=== PATIENT | male | born 1970 | race Caucasian/White ===

== ENCOUNTER → 2016-07-16 | Outpatient (CLI) | payer OTHER ==
[~2016-07-16] MED LIST: CYMB1CAP PO; EMLA2.5C TOP; HYDR-2809 PO; HYDR5TAB23 PO; IBUP80TA PO; LYRI200C PO; LYRI75CA PO; PERC10TA17 PO; SENO8.6T2 PO; ULTR50TA PO
--- NOTE | 2016-07-17 00:12 | ECWPNPC ---
PATIENT NAME: HORACIO CARTWRIGHT : 1970 GENDER: MALE VISIT DATE: 07/16/2016 DISCHARGE DATE: 07/16/16 1200 VISIT LOCKED DATE TIME: PHYSICIAN: JAGUAR SALAZAR RESOURCE: JAGUAR SALAZAR REASON FOR APPOINTMENT 1. RIGHT ARM PAIN HISTORY OF PRESENT ILLNESS HISTORY OF PRESENT ILLNESS: PAIN THE PATIENT DESCRIBES THE PAIN... 45 YEAR OLD MALE PATIENT WITH HISTORY OF CHRONIC RIGHT ARM PAIN. PATIENT DESCRIBES THE PAIN ACHING, SHARP, STABBING, TENDER, SHOOTING, AND HAVING IT ALL THE TIME WITH A PAIN SCORE OF 7/10. PATIENT WAS HURT IN A WORK RELATED INJURY IN JULY 2012 WHEN HIS ARM WAS PULLED INTO A LUMBER PLAINER. PATIENT WENT TO THE ER THE SAME DAY WHERE IT WAS PLANNED TO HAVE HIS RIGHT ARM AMPUTATED, TWO MONTHS AFTER THEY WERE ABLE TO DRAIN THE FLUID AND REATTACH THE BICEPS MUSCLE. SINCE THE ACCIDENT THE PATIENT IS UNABLE TO MOVE HIS ARM AND REPORTS BEING IN PAIN AT ALL TIMES. THE PATIENT IS CURRENTLY USING THE EMLA CREAM ALL OVER THE ARM ESPECIALLY ON THE WRIST AND ELBOW DUE TO THEM HIGH SENSITIVITY AND PAIN HE FEELS. MR. CARTWRIGHT IS ALSO USING LYRICA 3 TIMES A DAY FOR THE NEUROPATHIC PAIN, TRAMADOL UP TO 4 TIES A DAY, PERCOCET UP TO 4 TIMES A DAY, AND TIZANIDINE WHICH HE STATES HELPS TO KEEP HIM FUNCTIONAL. WITHOUT THE MEDICATIONS THE PATIENT STATES THAT HE WOULD NOT BE ABLE TO FUNCTION. MR. CARTWRIGHT REPORTS HE WOULD LIKE TO MOVE FORWARD WITH THE DCS TRIAL HOWEVER WE ARE STILL AWAITING APPROVAL FOR MRI'S AND A PSYCHOLOGICAL EVALUATION. AT THIS TIME MEDICATION MANAGEMENT IS THE ONLY THING THAT HAS GIVEN THE PATIENT ANY TYPE OF RELIEF. MR. CARTWRIGHT STATES THAT ANY MOVEMENT OF THE ARM INCREASES THE PAIN. PATIENT DENIES UNEXPLAINABLE WEIGHT LOSS, FEVER, CHILLS, NEW CHANGES ON HIS URINARY OR BOWEL CONTROL. FALL RISK SCREENING: SCREENING :NO FALLS IN THE PAST YEAR CURRENT MEDICATIONS TAKING EMLA 2.5-2.5 % CREAM PEA SIZED AMT EXTERNALLY APPLY Q 6 HRS TO RIGHT ARM FOR PAIN WORKERS COMP TAKING PERCOCET 10-325 MG TABLET 1 TABLET ORALLY EVERY 6 HRS PRN PAIN MDD=3 WORKERS COMP RIGHT ARM TAKING MULTI FOR HIM TABLET ORALLY DAILY TAKING DICLOFENAC 75 TABLET 1 CAPSULE ORALLY TWICE TIMES A DAY WITH FOOD TAKING LYRICA 200 MG CAPSULE 1 CAPSULE ORALLY Q 8 HRS MDD=3 WORKERS COMP R ARM TAKING TRAMADOL HCL 50 MG TABLET 1 TABLET NEEDED ORALLY EVERY 4 - 6 HRS PRN PAIN MDD = 6 WORKERS COM RIGHT ARM TAKING TIZANIDINE HCL 4 MG TABLET 1 TABLET ORALLY EVERY 8 HRS DISCONTINUED DICLOFENAC POTASSIUM 50 MG TABLET 1 TABLET ORALLY TWICE A DAY MEDICATION LIST REVIEWED AND RECONCILED WITH THE PATIENT PAST MEDICAL HISTORY NONE ALLERGIES HAY: STUFFY NOSE, ITCHY EYES SURGICAL HISTORY DISTAL BICEP REPAIR 2013 TRIGGER RELEASE RIGHT HAND 2013 NOSE REAPAIR FAMILY HISTORY NO FAMILY HISTORY DOCUMENTED. SOCIAL HISTORY GENERAL: TOBACCO USE ARE YOU A:NONSMOKER LEARNING BARRIERS / SPECIAL NEEDS ORIENTED TO PLAN OF CARE: PATIENT, PAIN MANAGEMENT PATIENT, ORIENTED TO PLAN OF CARE: PATIENT, PAIN MANAGEMENT PATIENT. NEW PATIENT PAIN DIARY TODAY'S VISITNOTES FROM 0-10, WHAT LEVEL IS YOUR PAIN TODAY?0 PAIN CLINIC PFS, CLERGY, PUBLIC HEALTH REFERRALS PFS REFERRAL NEEDED?NO CLERGY REFERRAL NEEDED?NO PUBLIC HEALTH REFERRAL NEEDED?NO WAS THE PROVIDER NOTIFIED OF ANY PERTINENT INFO?NO PFS REFERRAL NEEDED?NO CLERGY REFERRAL NEEDED?NO PUBLIC HEALTH REFERRAL NEEDED?NO WAS THE PROVIDER NOTIFIED OF ANY PERTINENT INFO?NO HOSPITALIZATION/MAJOR DIAGNOSTIC PROCEDURE NO HOSPITALIZATION HISTORY. REVIEW OF SYSTEMS CONSTITUTIONAL: ANY CHANGE IN YOUR MEDICAL CONDITION? NO . CHILLS NO . FEVER NO . INFECTION: DO YOU HAVE NEW INFECTIONS? NO . DO YOU HAVE HISTORY OF MRSA? NO . MUSCULOSKELETAL: ANY NEW PATTERNS OF PAIN OR NUMBNESS? NO . GASTROENTEROLOGY: ANY NEW CHANGE IN BOWEL CONTROL? NO . GENITOURINARY: ANY NEW CHANGE IN BLADDER CONTROL? NO . IS THERE A CHANCE YOU COULD BE ? NO . HEMATOLOGY/LYMPH: DO YOU TAKE ANY BLOOD THINNERS? (FOR EXAMPLE- COUMADIN, PLAVIX, AGGRENOX, PLATEL, PRADAXA, OR XARELTO) NO . WHEN WAS YOUR LAST DOSE? DATE: TIME: . NEUROLOGY: HAVE YOU FALLEN IN THE PAST 6 MONTHS? NO . ANY NEW EXTREMITY NUMBNESS OR WEAKNESS? NO . CARDIOLOGY: DO YOU HAVE A PACEMAKER OR DEFIBRILLATOR? NO . RESPIRATORY: HAVE YOU BEEN SICK IN THE PAST WEEK? NO . FEVER NO . FLU LIKE SYMPTOMS? NO . COUGH NO . INTEGUMENTARY: DO YOU HAVE ANY RASHES OR OPEN SORES? NO . ALLERGIC/IMMUNO: ARE YOU ALLERGIC TO SHELLFISH OR IV DYE? NO . ANY NEW ALLERGIES? NO . PSYCHIATRIC: DO YOU HAVE THOUGHTS OF HURTING YOURSELF OR SOMEONE ELSE? NO . ARE YOU ABUSED, NEGLECTED, OR IN AN UNSAFE ENVIRONMENT? NO . ENDOCRINOLOGY: ARE YOU DIABETIC? NO . OTHER: DO YOU NEED ANY PRESCRIPTIONS? YES . IF YES, PLEASE LIST: PERCOCET 10MG . ANY NEW PROBLEMS WITH YOUR MEDICATIONS? NO . WHEN DID YOU LAST EAT? ____ . WHEN DID YOU LAST DRINK? ____ . WHAT DID YOU LAST DRINK? ____ . NAME OF PERSON DRIVING YOU HOME? ____ . DO YOU HAVE ANY OTHER QUESTIONS OR CONCERNS YES, NEEDS MEDICAL RECORDS FOR COMP . REVIEWED BY: PROVIDER: JAGUAR SALAZAR MD . VITAL SIGNS WT 220 LBS, HT 73 IN, BMI 29.02 INDEX, BP 138/81 MM HG, HR 106 /MIN, RR 18 /MIN, TEMP 97.6 F, OXYGEN SAT % 98%, NA INITIALS SC 10:50, REVIEWED BY: CM. EXAMINATION : PATIENT IS ALERT O X 3 AND COOPERATIVE. ALLODYNIA IN THE RIGHT ELBOW AREA. SCAR ANTERIOR ASPECT OF THE ELBOW JOINT ROUGHLY 7 INCHES LONG. ALLODYNIA IN THE RIGHT ELBOW. RIGHT HAND GANG INVESTIGATOR IS VERY LIMITED AND MUCH WEAKER THEN THE LEFT. FLEXION OF THE RIGHT ARM IS LIMITED TO 20/30 DEGREES, ABDUCTION IS LIMITED, EXTENSION IS AT 10 DEGREES. RIGHT HAND SWOLLEN COMPARED TO THE LEFT HAND. RIGHT HAND AND FOREARM HAS MILD DISCOLORATION. ASSESSMENTS PAIN IN RIGHT UPPER ARM - M79.621 NEUROPATHY. TREATMENT OTHERS REFILL PERCOCET TABLET, 10-325 MG, 1 TABLET, ORALLY, EVERY 6 HRS PRN PAIN MDD=4 WORKERS COMP RIGHT ARM, 30 DAYS, 110, REFILLS 0 REFILL LYRICA CAPSULE, 200 MG, 1 CAPSULE, ORALLY, Q 8 HRS MDD=3 WORKERS COMP R ARM, 30 DAY(S), 90, REFILLS 2 REFILL TRAMADOL HCL TABLET, 50 MG, 1 TABLET NEEDED, ORALLY, EVERY 4 - 6 HRS PRN PAIN MDD = 6 WORKERS COM RIGHT ARM, 30 DAY(S), 150, REFILLS 1 REFILL TIZANIDINE HCL TABLET, 4 MG, 1 TABLET, ORALLY FOS SPAMSM AND PAIN, EVERY 8 HRS MDD3, 30 DAY(S), 90, REFILLS 2 REFILL EMLA CREAM, 2.5-2.5 %, PEA SIZED AMT, EXTERNALLY, APPLY Q 6 HRS TO RIGHT ARM FOR PAIN WORKERS COMP, 30 DAY(S), 5, REFILLS 2 REFILL DICLOFENAC TABLET, 75, 1 CAPSULE, ORALLY WITH FOOD, TWICE TIMES A DAY WITH FOOD, 30 DAY(S), 60, REFILLS 1 NOTES: WE DISCUSSED SEVERAL ISSUES WITH MR. CARTWRIGHT'S PAIN MANAGEMENT CASE. AT THIS TIME THE PATIENT WILL CONTINUE WITH THE SAME MEDICATION REGIME. PATIENT WILL CONTINUE TO USE PERCOCET FOR PAIN WHICH KEEPS HIM MOBILE AND ABLE TO FUNCTION THROUGHOUT THE DAY, PATIENT WILL RECEIVE 110 TABLETS FOR THE MONTH. MR. CARTWRIGHT WILL CONTINUE TO USE LYRICA 3 TIMES A DAY FOR THE NEUROPATHIC PAIN THAT GOES DOWN THE RIGHT ARM, PATIENT WILL RECEIVE 150 TABLETS FOR TRAMADOL TO ASSIST IN PAIN RELIEF, TIZANIDINE FOR THE SPASMS AND PAIN IN THE ARM, EMLA CREAM FOR THE ENTIRE ARM DUE TO THE SENSITIVITY THE PATIENT HAS IN SPECIFIC SPOTS ON THE ARM, AND PATIENT WILL USE DICLOFENAC BUT SLOWLY DECREASE THE USE. PATIENT DENIES USE OF ILLEGAL SUBSTANCES, DENIES USE OF ILLEGAL SUBSTANCES, AND STATES HE IS ONLY USING THE MEDICATION FOR PAIN MANAGEMENT. URINE TOXICOLOGY REPORT DONE ON 04/23/16 SHOWS CONSISTENT RESULTS WITH THE PATIENT'S MEDICATION LIST. WE WILL CONTINUE TO MOVE FORWARD WITH THE DCS TRIAL AND WILL PUSH FOR APPROVAL. PATIENT HAS EXHAUSTED MANY INTERVENTION OPTIONS. A DORSAL COLUMN STIMULATOR WOULD AID IN PAIN RELIEF AND THEORETICALLY THE PATIENT WOULD BE ABLE TO COME OFF OF HIS NARCOTICS. HOWEVER, AT THIS TIME THE PATIENT WILL CONTINUE WITH THE NARCOTICS TO STAY FUNCTIONAL AND MOBILE. PATIENT WILL RETURN TO THE CLINIC IN 3 WEEKS FOR A REFILL OF MEDICATION AND TO FURTHER DISCUSS HIS PAIN MANAGEMENT CASE. INSTRUCTIONS WERE GIVEN, QUESTIONS WERE ANSWERED, PATIENT REPORTS UNDERSTANDING AND AGREES WITH THE PLAN. I, NEVAEH [place], DOCUMENTED THE ABOVE INFORMATION ACTING A SCRIBE FOR DR. SALAZAR. I HAVE REVIEWED THE ABOVE DOCUMENT, WRITTEN BY NEVAEH BRADY AND I VERIFY THAT IT IS ACCURATE. PROCEDURES PN WORKMANS' COMP OPINION IN YOUR OPINION, WAS THE INCIDENT THAT THE PATIENT DESCRIBED THE COMPETENT MEDICAL CAUSE OF THIS INJURY/ILLNESS? YES ARE THE PATIENT'S COMPLAINTS CONSISTENT WITH HIS/HER HISTORY OF THE INJURY/ILLNESS? YES IS THE PATIENT'S HISTORY OF THE INJURY/ILLNESS CONSISTENT WITH YOUR OBJECTIVE FINDING? YES WHAT IS THE PERCENTAGE OF TEMPORARY IMPAIRMENT? TOTAL = 100% IS THE PATIENT WORKING? NO DOCTOR ON SITE: JAGUAR BRISCOE MD PROCEDURE CODES FA211 ESTABILISHED PATIENT [facility] FACILITY CHARGE G8427 DOC MEDS VERIFIED W/PT OR RE G8730 PAIN ASSESS POS TOOL F/U PLAN DOC FOLLOW UP 3 WEEKS ELECTRONICALLY SIGNED BY JAGUAR SALAZAR MD ON 07/16/2016 AT 06:08 PM EST DISCLAIMER : THIS IS A VISIT SUMMARY EXTRACTED FROM THE [facility] CHART. IT IS NOT A COPY OF THE [facility] PROGRESS NOTE. JOSE ELIAS
== END ==
LOC: M PAIN 10:20
PROVIDERS: ATTEND Anesthesiology
DX: Z09 Encounter for follow-up examination after completed treatment for conditions other than malignant neoplasm (principal); G89.21 Chronic pain due to trauma; M79.621 Pain in right upper arm; J30.2 Other seasonal allergic rhinitis; Z79.891 Long term (current) use of opiate analgesic; Z79.899 Other long term (current) drug therapy

== ENCOUNTER → 2016-08-09 | Outpatient (CLI) | payer OTHER | LOC: M PAIN 10:00 | PROVIDERS: ATTEND Anesthesiology | DX: Z53.29 Procedure and treatment not carried out because of patient's decision for other reasons (principal) ==